=== PATIENT | male | born 1970 ===

== ENCOUNTER 2025-04-22 13:35 | Emergency (ER) | payer OTHER, SELFPAY ==
[2025-04-22 13:44] VITALS: BP 140/100; PULSE 63; RESP 14; TEMP 36.7; O2SAT 100
--- NOTE | 2025-04-22 13:52 | ED.SKABFB ---
HPI - Skin/Abscess/Foreign Bdy General Chief complaint: Eye Problems Stated complaint: Stye/Rash Time Seen by Provider: 04/22/25 13:45 Source: patient Mode of arrival: ambulatory Limitations: no limitations History of Present Illness HPI narrative: Nik is a 54-year-old male patient presenting to the clinic today with complaints a possible stye to the right upper eyelid and a rash to his forehead and cheeks. He reports that the rash is been ongoing for over 2 years. States that the rash gets worse and then it improves at times. States that is itches and lizama. Does have some yellow crusting and pustule formation to the rash areas on his forehead. He is concerned for MRSA. Has a mildly swollen right upper eyelid with a notable external stye. States he gets stye is to the eyelids frequently. He has not seen anyone about his stye or his rash to his forehead. Has not completed any treatment for his symptoms. states he has a establishing primary care appointment but is not until August. Review of Systems Review of Systems: Pertinent positives per HPI. Patient denies any fever, chills, headache, visual changes, dizziness, cough, runny nose, sore throat, shortness of breath, chest pain, palpitations, nausea, vomiting, diarrhea, constipation, abdominal pain, or any urinary issues. PMFSH Comments At the time of my signature, I reviewed and agree with the nursing past medical, surgical, social, and family history. There is no relevant family history pertinent to the patient complaint. Exam Narrative: General: Well-developed, well nourished, in no apparent distress Head: Normocephalic, atraumatic Eyes: Pupils equally round and reactive to light bilaterally, EOM intact, sclera and conjunctive clear, no discharge, mild right upper eyelid swelling with pustule to the right mid upper eyelid Ears: TMs intact and clear, ear canals clear, no drainage, grossly hearing normal. Nose: Nares patent, no discharge, no inflammation, no sinus tenderness. Mouth: Oropharynx without lesions or masses, good dentition, MMM. Neck: Supple, trachea midline, no enlargement of anterior or posterior cervical nodes, no thyroid masses or goiter palpable. Cardio: Regular rate and rhythm, s1 and s2 normal, no murmur appreciated. Resp: Clear to auscultation bilaterally anteriorly and posteriorly, no rhonchi, rales, wheezing or rubs Integumentary: [place], warm, and dry, red, itching/in burning rash with yellow pustules and yellow crusting to the forehead and cheeks Course Course Emergency Course: Portions of this record may have been created with voice recognition software. Level of Care: Express Care Visit Vital Signs Vital signs: Vital Signs Temperature 36.7 C 04/22/25 13:44 Pulse Rate 63 04/22/25 13:44 Respiratory Rate 14 04/22/25 13:44 Blood Pressure 140/100 H 04/22/25 13:44 Pulse Oximetry 100 04/22/25 13:44 Oxygen Delivery Room Air 04/22/25 13:44 Temperature 36.7 C 04/22/25 13:44 Pulse Rate 63 04/22/25 13:44 Respiratory Rate 14 04/22/25 13:44 Blood Pressure 140/100 H 04/22/25 13:44 Pulse Oximetry 100 04/22/25 13:44 Oxygen Delivery Room Air 04/22/25 13:44 Vital signs reviewed MDM - Skin/Abscess/Foreign Bdy MDM Narrative Medical decision making narrative: At the time of visit patient is resting comfortably on the exam table. Patient appears to be nontoxic. Complaints a possible stye to the right upper eyelid and a rash to his forehead and cheeks. He reports that the rash is been ongoing for over 1 year. States that the rash gets worse and then it improves at times. States that is itches, lizama, and stings. Does have some yellow crusting and pustule formation to the rash areas on his forehead. Has a mildly swollen right upper eyelid with a notable external stye. States he gets stye is to the eyelids frequently. Has not completed any treatment for his symptoms. He has not seen anyone about his stye or his rash to his forehead. states he has a establishing primary care appointment but is not until August. He is concerned for MRSA. Plan: Rash to the forehead and cheeks with pustule formation and yellow crusting consistent with a staph infection. Patient does have a right upper eyelid stye as well. Prescription for polymyxin eyedrops and doxycycline was sent to the pharmacy. Prescription for chlorhexidine was also sent to the pharmacy. Recommend follow-up with PCP/biomedical field service engineer if symptoms do not improve. Supportive measures were discussed with the patient and they voiced understanding discharge instructions and agrees to treatment plan. Return precautions reviewed Differential Diagnosis Differential diagnosis: Likely abscess of skin or subcutaneous tissue, viral exanthem, dermatophytosis, urticaria, herpes zoster, allergic reaction to drug, cellulitis, eczema, insect bites, impetigo and contact dermatitis Discharge Plan Discharge Clinical Impression: Hordeolum externum of right upper eyelid, Bacterial skin infection Patient Disposition: Home Condition: Stable Instructions: Antibiotic Form, Macey (ED) Additional Instructions: Stye discharge instructions: Practice good hand washing techniques Avoid touching eyes Instill eyedrops as prescribed-polymyxin eyedrops May use warm moist washcloth to help stye drain If eyes are matted shut-do not pry eyes open-use a warm moist cloth to loosen matting and wipe matter away from eye May take Tylenol/Motrin as needed for pain or fever May take Benadryl as needed for itching Follow-up with your PCP in 3-5 days if symptoms persist or sooner if they worsen Go to the emergency room if you develop any fever that is not controlled by Tylenol or Motrin, loss of vision, eye pain, increase eye swelling,visual changes, headache, confusion, lethargy, weakness, chest pain, or shortness of breath. Skin bacteria instructions: Keep area clean and dry Take doxycycline as prescribed Wash area with chlorhexidine daily x7 days Watch for signs and symptoms of infection- redness, streaking, swelling, purulent discharge, or increase in pain. Follow up with your PCP as discussed. May follow-up with biomedical field service engineer-may call dermatology office to schedule appointment Patient Language: Unknown Prescriptions: New chlorhexidine gluconate 4 % liquid 1 applic topical ONCE 7 Days Qty: 118 0RF doxycycline monohydrate 100 mg capsule 100 mg PO BID 7 Days Qty: 14 0RF polymyxin B sulf-trimethoprim 10,000 unit- 1 mg/mL drops 1 drp RIGHT EYE Q3H 7 Days Qty: 10 0RF Rx Instructions: while awake; do not exceed 6 doses in 24 hours Follow-up/Referrals: PHYSICIAN,MOVIE THEATER MANAGER [Primary Care Provider] - Time of Disposition: 13:58 Quality NIHSS Nursing Documentation ED NIHSS nursing documentation: reviewed/agree
== END 2025-04-22 14:12 | disposition home or self-care (01) ==
PROVIDERS: Emergency Provider Nurse Practitioner Family
DX: H00.011 Hordeolum externum right upper eyelid (principal); L08.9 Local infection of the skin and subcutaneous tissue, unspecified; B96.89 Other specified bacterial agents as the cause of diseases classified elsewhere
CPT/HCPCS: 99203; G0463